=== PATIENT | male | born 1965 | race African-American/Black ===

== ENCOUNTER 2017-01-03 00:31 | Emergency (ER) | payer SELFPAY ==
[~2017-01-03] VITALS: Ht 170.2 cm; Wt 100.5 kg
[2017-01-03 01:10] LABS: INFLUENZA A VIRAL ANTIGEN POSITIVE; INFLUENZA B VIRAL ANTIGEN NEGATIVE
[2017-01-03 01:11] LABS: HEMATOCRIT 37.8 % (38.0-50.0); MCH 25.8 PG (29.0-34.0); MCHC 33.1 G/DL (30.0-36.0); MCV 78.1 FL (86-99); MEAN PLAT.VOLUME 9.8 uM^3 (9.0-12.4); PLATELET COUNT 223 K/uL (156-360); RBC DIS.WIDTH-CV 14.5 % (11.8-14.6); RBC DIS.WIDTH-SD 39.8 % (39-53); RED BLOOD COUNT 4.84 M/uL (4.00-5.50); WHITE BLOOD COUNT 5.9 K/uL (4.1-10.2)
[2017-01-03 01:19] LABS: CHLORIDE 104 mEq/L (99-109); POTASSIUM 3.9 mEq/L (3.7-5.4); SODIUM 135 mEq/L (136-147)
[2017-01-03 01:21] LABS: GLUCOSE 103 mg/dL (70-99)
[2017-01-03 01:23] LABS: ANION GAP 10 MEQ/L (2-14); TOTAL BILIRUBIN 0.2 mg/dL (0.0-1.0)
[2017-01-03 01:25] LABS: ALKALINE PHOSPHATASE 67 IU/L (3-129); GFR ESTIMATE (CALCULATED) > 59 mL/min/
[2017-01-03 01:26] LABS: UREA NITROGEN (BUN) 13 mg/dL (9-23)
[2017-01-03 02:15] VITALS: BP 119/77
== END 2017-01-03 02:29 | disposition home or self-care (01) ==
LOC: EME 00:31
PROVIDERS: Emergency Medicine
DX: J10.1 Influenza due to other identified influenza virus with other respiratory manifestations (principal)
CPT/HCPCS: 71020; 80053; 85027; 87502; 87651 90; 99281; 99285; J7030